=== PATIENT | female | born 1945 ===

== ENCOUNTER 2016-08-21 20:29 | Inpatient (IN) | payer MEDICARE ==
[2016-08-21 20:54] VITALS: BMI 23.8
--- NOTE | 2016-08-21 20:58 | ED PDOC ---
Arrival/HPI - General Time Seen by Provider: 08/21/16 20:55 Historian: Patient EM Caveat: Acuity of Condition, Respiratory Distress - History of Present Illness Narrative History of Present Illness (Text): 08/21/16 20:55 70 year old female whose past medical history includes leukemia, HIV, brought in by ambulance with shortness of breath, respiratory distress. Daughter states she left her mom in the morning in her normal state and found her to be tachypneic, so called EMS. Pt unable to provide hx due to resp. status. Past Medical History - Provider Review Nursing Documentation Reviewed: Yes - Infectious Disease Hx of Infectious Diseases: None - Tetanus Immunization Tetanus Immunization: Unknown - Past Medical History Past Medical History: No Previous - Cardiac Hx Cardiac Disorders: No - Pulmonary Hx Respiratory Disorders: No - Neurological Hx Neurological Disorder: No - HEENT Hx HEENT Disorder: Yes ([place] ear, sinus problems) - Renal Hx Renal Disorder: No - Endocrine/Metabolic Hx Endocrine Disorders: No - Hematological/Oncological Hx Blood Disorders: Yes Hx Leukemia: Yes - Integumentary Hx Dermatological Disorder: No - Musculoskeletal/Rheumatological Hx Falls: No - Gastrointestinal Hx Gastrointestinal Disorders: No - Genitourinary/Gynecological Hx Genitourinary Disorders: No - Psychiatric Hx Psychophysiologic Disorder: No Hx Depression: No Hx Emotional Abuse: No Hx Physical Abuse: No Hx Substance Use: No - Past Surgical History Past Surgical History: No Previous - Suicidal Assessment Feels Threatened In Home Enviroment: No Family/Social History - Physician Review Nursing Documentation Reviewed: Yes Family/Social History: Unknown Family HX Smoking Status: Never Smoked Hx Alcohol Use: No Hx Substance Use: No Hx Substance Use Treatment: No Allergies/Home Meds Allergies/Adverse Reactions: Allergies No Known Allergies Allergy (Verified 12/02/15 17:53) Review of Systems - Review of Systems Systems not reviewed;Unavailable: Respiratory Distress Physical Exam - Physical Exam Narrative Physical Exam (Text): - Physical exam Patient appears age appropriate - Systems Exam Head: Present: Atraumatic, Normocephalic Pupils: Present: PERRL Extraocular Muscles: Present: EOMI Conjunctiva: Present: Normal Mouth: Present: Moist Mucous Membranes Neck: Present: Normal Range of Motion. No: MIDLINE TENDERNESS, Paraspinal Tenderness Respiratory/Chest: Present: Clear to Auscultation, Tachypnic, Hypoxic. Cardiovascular: Present: Tachycardic, Normal S1, S2, Peripheral Pulses Present. No: Murmurs Abdomen: Present: Normal Bowel Sounds, No: Tenderness, Peritoneal Signs, Rebound, Guarding, Distention Back: Present: Normal Inspection. No: Midline Tenderness, Paraspinal Tenderness Upper Extremity: Present: Normal Inspection. No: Cyanosis, Edema Lower Extremity: Present: Normal Inspection. No: Edema Neurological: Present: GCS=15. No focal neurological deficits Skin: Present: Warm, Dry, Normal Color. No: Rashes Lymphatic: Present: OX3, NI, NC Physical Exam Limitations: Clinical Condition Vital Signs Reviewed: Yes Vital Signs Pulse Resp BP Pulse Ox 08/21/16 21:03 128 H 27 H 57/35 L 08/21/16 20:53 154 H 17 100/68 08/21/16 20:40 26 H 08/21/16 20:30 104 H 46 H 74/41 L 100 Blood Pressure: Hypotensive Respiratory Rate: Mechanically Ventilated Appearance: Positive for: Ill-Appearing Pain Distress: None Mental Status: Positive for: Lethargic Medical Decision Making ED Course and Treatment: Impression: 70 year old female presents with respiratory distress. Presented tachypneic, hypoxic, tachycardic. Lungs clear to ausc. b/l. Bedside US performed , no pericardial effusion. Differential Diagnosis included but are not limited to: Pulmonary embolism, sepsis, anemia Plan: -- CT Angio, EKG, Chest X-ray -- Labs -- Reassess and disposition Prior Visits: Notes and results from previous visits were reviewed. Patient last seen in the ED on 12/02/15 for decreased mental status and admitted for SIRS (systemic inflammatory response syndrome). Progress Notes: pt seen immediately on arrival attempted bipap Spoke with daughter in detail about pt's condition, states full code. pt lost pulses, and CPR started intubated pt's BP low. gave verbal order for levophed. Also started epi drip via NS and crash cart epi while waiting for pressor seen by Dr. Bey and accepted to MICU. pharmacy called and asked to send tpa for possible suspicion for PE dw daughter and she has been updated on pt status pt to CT and then MICU PROCEDURE: CENTRAL LINE PLACEMENT Performed by the emergency provider, Time: 20:45 Consent: Discussion of the risks, benefits, and alternatives to the procedure, along with informed consent was precluded by the urgency of the procedure and the patient condition. Verbal consent obtained from daughter. Timeout: A timeout to verify the correct patient, procedure, and site was performed. Indication: pressors, need access for CTA Skin Preparation: Hand hygiene performed prior to central venous catheter insertion. Sterile field, sterile drape, sterile technique, and cap and gown were used. The area was cleansed with 2% Chlorhexidine. Patient position: Supine Location: R. femoral. L. femoral attempted, unable to feed guide wire. pressure held. Technique: The landmarks for the line placement were identified. The vessel was cannulated and a triple lumen catheter was placed using the Seldinger technique. Successful placement: Yes. Line sutured with silk and appropriate dressing applied Assessment: Good patency and blood return through all three lumens. The ports were appropriately flushed. See post procedure X-Ray interpretation. Post-procedure: Patient tolerated the procedure well with no immediate complications. PROCEDURE: INTUBATION Performed by the emergency provider Time: 20:50 Consent: emergent consent Timeout: A timeout to verify the correct patient, procedure, and site was performed. Indication: Respiratory distress Pre-oxygenation: [id number] Medications: None. See MAR for details. ETT Size: 7.0 Confirmation: Cords directly visualized as tube passed, good bilateral breath sounds, positive CO2 detector color change, tube fogging, adequate chest rise, improving pulse oximetry reading, improved skin color, and absence of gastric sounds,. ETT Secured: The cuff was inflated and the tube was secured appropriately at a distance of 22 cm at the lip. Post-Procedure: There were no immediate complications. CXR Confirmation: Yes 08/21/16 21:[address] Romero covering for Dr. Henriquez, states he will speak with Dr. Henriquez dw Dr. Henriquez, states to be cautious with tpa due to thrombocytopenia but to administer it if pt has a PE, after dw family 08/21/16 22:22 CTA [facility] IMPRESSION: 1. Minimal right pleural effusion which is similar to 12/03/2015 and trace left pleural effusion which is decreased. There is also decreased bilateral lower lobe atelectasis or consolidation. 2. Multiple new anterior rib fractures bilaterally since the prior study and suggests recent CPR. There is a question of a sternal fracture as well. 3. ET tube extending to the cephalad aspect of the aortic arch, above the norah. 4. Enlarged right atrium with reflux into the IVC and hepatic veins and abnormal RV/LV ratio suggesting right heart failure. 5. Mild patchy infiltrates in the right upper lobe and to a lesser degree right lower lobe and question of minimal patchy left perihilar infiltrates which may reflect pneumonia or possibly pulmonary edema. 6. Nodular induration throughout the mediastinum borderline hilar nodes which was present on the prior study and of uncertain etiology. 7. No pulmonary embolism is identified. 8. Mild splenomegaly. Patient's chest x-ray shows no pneumothorax, no effusions, endotracheal tube above the norha. Interpreted by me EKG shows sinus tach, 100bpm, no st-segment elevations. interpreted by me. - Critical Care Critical Care Minutes: 60 minutes - Lab Interpretations Lab Results: 08/21/16 20:35 08/21/16 20:35 Lab Results 08/21/16 20:35: Sodium 137, Chloride 106, Potassium 4.3, Carbon Dioxide 10 L D, Anion Gap 25 H, BUN 27 H, Creatinine 1.9 H, Est GFR ( Amer) 31, Est GFR ( Non-Af Amer) 26, Random Glucose 62 L, Calcium 8.0 L, Phosphorus 6.3 H, Magnesium 1.8, Total Bilirubin 4.3 H, AST 115 H, ALT 32, Alkaline Phosphatase 289 H, Troponin I 0.04 D, Total Protein 9.6 H, Albumin 3.4, Globulin 6.2, Albumin/Globulin Ratio 0.5 L 08/21/16 20:35: pO2 65 H, VBG pH 7.05 L*, VBG pCO2 32.0 L, VBG HCO3 8.9 L, VBG Total CO2 9.9 L, VBG O2 Sat (Calc) 87.8 H, VBG Base Excess -20.6 L, VBG Potassium 7.1 H*, Sodium 135.0, Chloride 107.0, Glucose 51 L, Lactate 11.9 H*, FiO2 21.0, Venous Blood Potassium 7.1 H* 08/21/16 20:35: PT 19.0 H, INR 1.76 H, APTT 57.1 H 08/21/16 20:35: WBC 45.8 H* D, RBC 3.10 L, Hgb 9.8 L, Hct 30.4 L, MCV 98.1, MCH 31.6, MCHC 32.2, RDW 20.6 H, Plt Count 39 L*, Neutrophils % (Manual) 5 L, Lymphocytes % (Manual) 93 H, Monocytes % (Manual) 2, Smudge Cells Present, Platelet Evaluation Low, Anisocytosis (manual) Slight - RAD Interpretation Radiology Orders: 08/21/16 20:39 CHEST PORTABLE [RAD] Stat 08/21/16 21:06 ANGIO CHEST PE PROTOCOL [CT] Stat - Medication Orders Current Medication Orders: Discontinued Medications Home Med (*Refrigerator Open) Confirm Administered Dose 1 unit XX .STK-MED ONE Stop: 08/22/16 06:08 Sodium Chloride (Sodium Chloride 0.9%) 1,000 mls @ 999 mls/hr IV .Q1H1M STA Stop: 08/21/16 23:00 Sodium Chloride (Sodium Chloride 0.9%) 1,000 mls @ 125 mls/hr IV .Q8H MANDA Piperacillin Sod/Tazobactam Sod (Zosyn 2.25 Gm In 0.9% 100 Ml) 2.25 gm in 100 mls @ 100 mls/hr IVPB Q6 MANDA PRN Reason: Protocol Stop: 08/22/16 06:59 Last Admin: 08/22/16 00:00 Dose: 100 mls/hr Vancomycin HCl (Vancomycin 500mg In Ns) 500 mg in 100 mls @ 200 mls/hr IVPB Q12 MANDA PRN Reason: Protocol Last Admin: 08/21/16 22:30 Dose: 200 mls/hr Norepinephrine Bitartrate 4 mg (/ Sodium Chloride) 254 mls @ 15.24 mls/hr IV .[id number] PRN; Protocol; 4 MCG/MIN PRN Reason: TITRATE PER MD ORDER Sodium Bicarbonate 50 meq/ (Sodium Chloride) 1,050 mls @ 125 mls/hr IV .Q8H24M MANDA Iodixanol (Visipaque 320 Mg/Ml 100 Ml) Confirm Administered Dose 100 ml IV .STK- MED ONE Stop: 08/21/16 21:11 Lorazepam (Ativan) Confirm Administered Dose 2 mg .ROUTE .STK-MED ONE Stop: 08/21/16 20:45 Last Admin: 08/21/16 20:44 Dose: 2 mg Comments: Administered IVP as per verbal order from Dr. Jon for seizure Sodium Bicarbonate (Sodium Bicarbonate (8.4%) 50 Meq Syringe) Confirm Administered Dose 50 meq .ROUTE .STK-MED ONE Stop: 08/21/16 22:28 Sodium Bicarbonate (Sodium Bicarbonate (8.4%) 50 Meq Syringe) Confirm Administered Dose 50 meq .ROUTE .STK-MED ONE Stop: 08/21/16 23:14 Sodium Bicarbonate (Sodium Bicarbonate (8.4%) 50 Meq Syringe) Confirm Administered Dose 50 meq .ROUTE .STK-MED ONE Stop: 08/22/16 00:03 - Scribe Statement The provider has reviewed the documentation as recorded by the Kelly Evans Provider Scribe Attestation: All medical record entries made by the Kelly were at my direction and personally dictated by me. I have reviewed the chart and agree that the record accurately reflects my personal performance of the history, physical exam, medical decision making, and the department course for this patient. I have also personally directed, reviewed, and agree with the discharge instructions and disposition. Disposition/Present on Arrival - Present on Arrival Any Indicators Present on Arrival: No History of DVT/PE: No History of Uncontrolled Diabetes: No Urinary Catheter: No History Surgical Site Infection Following: None - Disposition Have Diagnosis and Disposition been Completed?: Yes Diagnosis: Respiratory failure Disposition: HOSPITALIZED Disposition Time: 21:36 Patient Plan: ICU Condition: CRITICAL
[2016-08-21 21:07] LABS: VENOUS BLOOD GAS BASE EXCESS -20.6 mmol/L (0.0-2.0)
[2016-08-21] MEDS ORDERED: Iodixanol 320 MG/ML 100 ML BOTTLE IV ONE (21:10)
[2016-08-21 21:11] LABS: VENOUS BLOOD PH 7.05 (7.32-7.43)
[2016-08-21 21:12] LABS: HEMATOCRIT 30.4 % (36.0-48.0); MEAN CELL VOLUME 98.1 fL (80.0-105.0); MEAN CORPUSCULAR HEMOGLOBIN 31.6 pg (25.0-35.0); MEAN CORPUSCULAR HGB CONC 32.2 g/dl (31.0-37.0); PLATELET COUNT 39 10^3/uL (120.0-450.0); RED CELL DISTRIBUTION WIDTH 20.6 % (11.5-14.5)
[2016-08-21 21:21] LABS: ADD MANUAL DIFF? YES
[2016-08-21 21:22] LABS: ALB/GLOB RATIO 0.5 (1.1-1.8); BILIRUBIN,TOTAL 4.3 mg/dL (0.2-1.3); MAGNESIUM 1.8 mg/dL (1.7-2.2); PHOSPHOROUS 6.3 mg/dL (2.5-4.5); POTASSIUM 4.3 mmol/L (3.6-5.0); TOTAL PROTEIN 9.6 g/dL (5.8-8.3); WHITE BLOOD COUNT 45.8 10^3/ul (4.5-11.0)
[2016-08-21 21:32] LABS: TROPONIN I 0.04 ng/mL
[2016-08-21 21:33] LABS: INR 1.76 (0.93-1.08); PARTIAL THROMBOPLASTIN TIME 57.1 Seconds (23.7-30.8)
[2016-08-21 21:36] LABS: NEUTROPHIL 5 % (50.0-70.0)
[2016-08-21 21:37] LABS: ANISOCYTOSIS SLIGHT; PLATELET ESTIMATE LOW (NORMAL); SMUDGE CELLS PRESENT
[2016-08-21] MEDS ORDERED: Sodium Chloride 0.9% 1,000 ML IV STA (22:00)
--- NOTE | 2016-08-21 22:02 | CP.PCM.CON ---
<Mayur Hawkins - Last Filed: 08/21/16 23:47> History of Present Illness - History of Present Illness History of Present Illness: ICU NIGHT RESIDENT CONSULT NOTE HPI: Pt is a 70 year old female with a PMHx of leukemia and HIV who presented to the ED in respiratory distress via EMS. Pt coded in the emergency department , and ICU was consulted. Pt is accompanied by her family, including her daughter and grandson, at bedside. As per daughter, pt was feeling tired all day but was not in distress. When the daughter arrived home from work, the pt started to complain of weakness and trouble breathing. According to the daughter , the pt was struggling for air and EMS was called. History obtained from [facility]. ROS unattainable due to pt being unresponsive. PMD: Dr. Stone Oncologist: Dr. Henriquez PMHx: Leukemia, HIV Home medications: Cozaar, atorvaquone, lopressor Allergies: NKDA Past Surgical Hx: denied Social Hx: no hx of tobacco use, daughter reports pt a few alcoholic drinks daily, denies hx of drug use Family Hx: no significant past medical hx reported Review of Systems - Review of Systems Systems not reviewed;Unavailable: Intubated Past Patient History - Infectious Disease Hx of Infectious Diseases: None - Tetanus Immunizations Tetanus Immunization: Unknown - Past Social History Smoking Status: Never Smoked - CARDIAC Hx Cardiac Disorders: No - PULMONARY Hx Respiratory Disorders: No - NEUROLOGICAL Hx Neurological Disorder: No - HEENT Hx HEENT Problems: Yes ([place] r ear, sinus problems) - RENAL Hx Chronic Kidney Disease: No - ENDOCRINE/METABOLIC Hx Endocrine Disorders: No - HEMATOLOGICAL/ONCOLOGICAL Hx Blood Disorders: Yes Hx Leukemia: Yes - INTEGUMENTARY Hx Dermatological Problems: No - MUSCULOSKELETAL/RHEUMATOLOGICAL Hx Falls: No - GASTROINTESTINAL Hx Gastrointestinal Disorders: No - GENITOURINARY/GYNECOLOGICAL Hx Genitourinary Disorders: No - PSYCHIATRIC Hx Psychophysiologic Disorder: No Hx Depression: No Hx Emotional Abuse: No Hx Physical Abuse: No Hx Substance Use: No - SURGICAL HISTORY Hx Surgeries: No Meds Allergies/Adverse Reactions: Allergies Allergy/AdvReac Type Severity Reaction Status Date / Time No Known Allergies Allergy Verified 12/02/15 17:53 - Medications Medications: Current Medications Sodium Chloride (Sodium Chloride 0.9%) 1,000 mls @ 999 mls/hr IV .Q1H1M STA Stop: 05/04/17 23:00 Physical Exam - Constitutional Appears: Toxic - Head Exam Head Exam: ATRAUMATIC, NORMOCEPHALIC - Eye Exam Eye Exam: absent: PERRL - ENT Exam ENT Exam: Mucous Membranes Moist - Respiratory Exam Respiratory Exam: Clear to Auscultation Bilateral. absent: Rales, Rhonchi, Wheezes - Cardiovascular Exam Cardiovascular Exam: +S1, +S2 - GI/Abdominal Exam GI & Abdominal Exam: Soft - Skin Skin Exam: Pallor Results - Labs Result Diagrams: 08/21/16 20:35 08/21/16 20:35 Labs: Laboratory Results - last 24 hr 08/21/16 08/21/16 08/21/16 20:35 20:35 20:35 WBC 45.8 H* D RBC 3.10 L Hgb 9.8 L Hct 30.4 L MCV 98.1 MCH 31.6 MCHC 32.2 RDW 20.6 H Plt Count 39 L* Neutrophils % (Manual) 5 L Lymphocytes % (Manual) 93 H Monocytes % (Manual) 2 Smudge Cells Present Platelet Evaluation Low Anisocytosis (manual) Slight PT 19.0 H INR 1.76 H APTT 57.1 H pO2 65 H VBG pH 7.05 L* VBG pCO2 32.0 L VBG HCO3 8.9 L VBG Total CO2 9.9 L VBG O2 Sat (Calc) 87.8 H VBG Base Excess -20.6 L VBG Potassium 7.1 H* Sodium 135.0 Chloride 107.0 Glucose 51 L Lactate 11.9 H* FiO2 21.0 Potassium Carbon Dioxide Anion Gap BUN Creatinine Est GFR ( Amer) Est GFR (Non-Af Amer) Random Glucose Calcium Phosphorus Magnesium Total Bilirubin AST ALT Alkaline Phosphatase Troponin I Total Protein Albumin Globulin Albumin/Globulin Ratio Venous Blood Potassium 7.1 H* 08/21/16 20:35 WBC RBC Hgb Hct MCV MCH MCHC RDW Plt Count Neutrophils % (Manual) Lymphocytes % (Manual) Monocytes % (Manual) Smudge Cells Platelet Evaluation Anisocytosis (manual) PT INR APTT pO2 VBG pH VBG pCO2 VBG HCO3 VBG Total CO2 VBG O2 Sat (Calc) VBG Base Excess VBG Potassium Sodium 137 Chloride 106 Glucose Lactate FiO2 Potassium 4.3 Carbon Dioxide 10 L D Anion Gap 25 H BUN 27 H Creatinine 1.9 H Est GFR ( Amer) 31 Est GFR (Non-Af Amer) 26 Random Glucose 62 L Calcium 8.0 L Phosphorus 6.3 H Magnesium 1.8 Total Bilirubin 4.3 H AST 115 H ALT 32 Alkaline Phosphatase 289 H Troponin I 0.04 D Total Protein 9.6 H Albumin 3.4 Globulin 6.2 Albumin/Globulin Ratio 0.5 L Venous Blood Potassium Assessment & Plan - Assessment and Plan (Free Text) Assessment: Hypoxemic Respiratory Failure/Cardiac Arrest: Lactate - 11.9 WBC - 45.8 Zosyn 2.25 IV q6h Vancomycin 500 mg Q12h EKG -1st degree block, [id number] CXR pending Chest CT - no pulmonary embolism (please see full report) Echocardiogram pending Lower extremity dopplers pending SIRS: WBC - 45.8 Zosyn 2.25 IV q6h Vancomycin 500 mg Q12h Procalcitonin pending Thrombycytopenia: Platelet count - 39 Anticoagulation held Prophylactic Measures: Anticoagulation held Protonix 40 mg po IV <Maida LING,Mario - Last Filed: 10/14/16 08:56> Results - Vital Signs Recent Vital Signs: Last Vital Signs Temp 97 F L 08/21/16 22:07 Pulse 97 H 08/22/16 00:01 Resp 81 H 08/22/16 00:01 BP 130/63 08/22/16 00:01 Pulse Ox 100 08/21/16 20:30 - Labs Result Diagrams: 08/21/16 20:35 08/21/16 20:35 Attending/Attestation - Attestation I have personally seen and examined this patient.: Yes I have fully participated in the care of the patient.: Yes I have reviewed all pertinent clinical information: Yes Notes (Text): 10/14/16 08:56 -I agree with the above consult H&P completed by the resident physician.
[2016-08-21 22:03] VITALS: O2SAT 100
[2016-08-21] MEDS ORDERED: Sodium Chloride 0.9% 1,000 ML IV SCH (22:15)
[2016-08-21] MEDS ORDERED: Vancomycin 500mg in NS 500 MG/100 ML BAG IVPB SCH (22:15)
[2016-08-21] MEDS ORDERED: Sodium Bicarbonate (8.4%) 50 Meq Syringe ONE ×2 (22:27→23:13)
[2016-08-22] MEDS ORDERED: Piperacillin/Tazobact 2.25gm 2.25 GM/100 ML BAG IVPB SCH
[2016-08-22] MEDS ORDERED: Sodium Bicarbonate (8.4%) 50 Meq Syringe ONE (00:02)
--- NOTE | 2016-08-22 00:46 | CP.PCM.PN ---
<Mayur Hawkins - Last Filed: 08/22/16 00:19> Subjective - Date & Time of Evaluation Date of Evaluation: 08/21/16 Time of Evaluation: 22:13 - Subjective Subjective: ICU NIGHT RESIDENT CODE BLUE NOTE PT coded 3 times in the CCU and 2 times in the ED prior to arrival in the ICU. First code in the ICU called at 22:14 due to PEA.. CPR was started. 3 rounds of epinephrine given at 22:13, 22:16, and 22:20. 3 rounds of bicarb given at 22: 22. No shockable rhythm. Return of pulses. Second code in ICU called at 23:05 due to PEA. CPR was started. 1st round of epinephrine given at 23:07, as well as 2 amps of bicarb. Second round of spinephrine given at 23:14. Return of pulses. Third code in ICU called at 23:55 due PEA. CPR was started. Epinephrine and bicarb was given at 23:57. Pt was in fine fib at 00:05 and shocked at 300 joules. Pt was given 2nd epinephrine at 00:08. Pt was asystolic and pronounced by nighttime foreman or supervisor and operator. Pupillary and corneal reflexes were not intact. Pt was unresponsive to sternal rub. Heart and breath sounds were absent. Objective - Vital Signs/Intake and Output Vital Signs (last 24 hours): Temp Pulse Resp BP Pulse Ox 128 H 27 H 57/35 L 100 08/21/16 21:03 08/21/16 21:03 08/21/16 21:03 08/21/16 20:30 - Medications Medications: Current Medications Piperacillin Sod/Tazobactam Sod (Zosyn 2.25 Gm In 0.9% 100 Ml) 2.25 gm in 100 mls @ 100 mls/hr IVPB Q6 MANDA PRN Reason: Protocol Stop: 08/22/16 06:59 Vancomycin HCl (Vancomycin 500mg In Ns) 500 mg in 100 mls @ 200 mls/hr IVPB Q12 MANDA PRN Reason: Protocol Norepinephrine Bitartrate 4 mg (/ Sodium Chloride) 254 mls @ 15.24 mls/hr IV .[id number] PRN; Protocol; 4 MCG/MIN PRN Reason: TITRATE PER MD ORDER Sodium Bicarbonate 50 meq/ (Sodium Chloride) 1,050 mls @ 125 mls/hr IV .Q8H24M MANDA - Labs Labs: PT 19.0 Seconds (9.9-11.8) H 08/21/16 20:35 INR 1.76 (0.93-1.08) H 08/21/16 20:35 APTT 57.1 Seconds (23.7-30.8) H 08/21/16 20:35 <Mario Bey MD - Last Filed: 10/14/16 08:59> Objective - Vital Signs/Intake and Output Vital Signs (last 24 hours): Temp Pulse Resp BP Pulse Ox 97 F L 97 H 81 H 130/63 100 08/21/16 22:07 08/22/16 00:01 08/22/16 00:01 08/22/16 00:01 08/21/16 20:30 - Labs Labs: PT 19.0 Seconds (9.9-11.8) H 08/21/16 20:35 INR 1.76 (0.93-1.08) H 08/21/16 20:35 APTT 57.1 Seconds (23.7-30.8) H 08/21/16 20:35 Attending/Attestation - Attestation I have personally seen and examined this patient.: Yes I have fully participated in the care of the patient.: Yes I have reviewed all pertinent clinical information, including history, physical exam and plan: Yes Notes (Text): 10/14/16 08:57 -I agree with the Code Blue events (and ultimate proclamation of ) as described above by the resident physician.
[2016-08-22 02:56] VITALS: BP 130/63; PULSE 97; RESP 81
[2016-08-22 03:11] VITALS: TEMP 97
--- NOTE | 2016-08-22 08:22 | CT ---
PROCEDURE: CT Chest with contrast (Pulmonary Angiogram) HISTORY: SOB COMPARISON: None available. TECHNIQUE: Axial computed tomography images were obtained of the chest in the pulmonary arterial phase of enhancement. Coronal and sagittal reformatted images were created and reviewed. Intravenous contrast dose: 100 mL Visipaque Radiation dose: Total exam DLP = 309.32 mGy-cm. This CT exam was performed using one or more of the following dose reduction techniques: Automated exposure control, adjustment of the mA and/or kV according to patient size, and/or use of iterative reconstruction technique. FINDINGS: Endotracheal tube terminates in distal trachea. There is a small right thyroid lobe and nodular enlarged left thyroid lobe. PULMONARY ARTERIES: There are no filling defects in the pulmonary arteries. No pulmonary embolism. AORTA: No acute findings. No thoracic aortic aneurysm. LUNGS: There is patchy ground-glass attenuation in the right upper lobe and to a lesser extent the right lower lobe. There is biapical pleural parenchymal scarring. The right middle lobe and left lung are clear. There is bibasilar atelectasis. PLEURAL SPACES: There are small bilateral pleural effusions, right larger than left. No pneumothorax. HEART: There is mild cardiomegaly with dilatation of the right atrium. There is reflux of contrast into the IVC. LYMPH NODES: No lymphadenopathy. BONES, CHEST WALL: There is a displaced fracture of the left 2nd rib with adjacent hematoma. There is also a subpleural hematoma. There also fractures of the left 326 anterior ribs. There are nondisplaced fractures of the right 2nd 7th ribs. OTHER FINDINGS: There is mild splenomegaly. IMPRESSION: No CT evidence for acute pulmonary embolism. Bilateral anterior rib no acute fractures with subpleural hematoma along the left 2nd rib fracture. Ground-glass attenuation in the right upper lobe could represent mild alveolar pulmonary edema or aspiration pneumonitis. Cardiomegaly and small pleural effusions, larger on the right. Mild splenomegaly. A preliminary report was provided by [facility].
--- NOTE | 2016-08-22 08:50 | RAD ---
HISTORY: Sepsis Patient COMPARISON: 12/07/2015 FINDINGS: Endotracheal tube terminates 4 cm proximal to the norah. LUNGS: The lungs are well inflated and clear. PLEURA: No significant pleural effusion identified, no pneumothorax apparent. CARDIOVASCULAR: There is persistent mild cardiomegaly. Atherosclerotic aortic arch calcifications are present. . OSSEOUS STRUCTURES: No significant abnormalities. VISUALIZED UPPER ABDOMEN: Normal. OTHER FINDINGS: None. IMPRESSION: No acute findings.
--- NOTE | 2016-08-22 14:31 | CP.PCM.PRO ---
Pronouncement of Note - Clinical Findings Physical Exam: No Response Verbal/Painful Stimuli, Absent Peripheral Pulses{ Carotid & Femoral}, Absent Heart & Breath Sounds, No Pupillary Light Reflex, No Corneal Reflex, Pupils Fixed & Dilated, Absence of Vital Signs - Pronouncement Time Time of Pronouncement of : 00:10 - Notifications Pronouncement Notifications: Family Notified, Atending Notified Senior Medical Technologist Notified: Yes - Autopsy Autopsy Requested: No
--- NOTE | 2016-08-22 17:12 | CARD ---
APPROVED REPORT EKG Measurement Heart [id number] <Conclusion> Sinus rhythm with 1st degree AV block with fusion complexes Low voltage QRS Left posterior fascicular block Inferior infarct, age undetermined Cannot rule out Anteroseptal infarct, age undetermined Abnormal ECG
--- NOTE | 2016-10-01 00:24 | HP ---
CHIEF COMPLAINT: Respiratory distress. HISTORY OF PRESENT ILLNESS: This patient is a 71-year-old female with past medical history significa nt for symptomatic anemia requiring transfusions periodically along with human immunodeficiency virus positivity, brought in by her daughter for severe shortness of breath and tachypnea. The patient wa s evaluated in the Emergency Room with considerations for possible pulmonary embolism with the patien t noted to have hypotensive episode, eventually transferred to the intensive care unit. The assessme nt at that time was that of respiratory failure with hypovolemic sepsis and severe thrombocytopenia. ALLERGIES: No known allergies. PAST MEDICAL HISTORY: As above with human immunodeficiency virus positivity, severe anemia, with lar ge granular cell lymphocytic leukemia, recent pneumonia. MEDICATIONS: On admission included Cozaar, atovaquone, Lopressor. FAMILY HISTORY AND SOCIAL HISTORY: Noncontributory. 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 OBJECTIVE: VITAL SIGNS: On admission included a temperature 97, pulse 104, respirations 26, blood pressure 74/4 1 with a pulse ox of 100% on nonrebreather. GENERAL: According to physicians attending her, showed that she was tachypneic with clear auscultati on of her lungs with the heart tachycardic. Other physical exam findings are as per Dr. Jon, [facility] Room doctor. LABORATORY DATA: White blood cell count of 45,800, hemoglobin 9.8, hematocrit 30.4, platelet count 3 9,000 with a chem panel showing a BUN of 27, creatinine 1.9. The patient's testing included an EKG, which was read as sinus rhythm, first degree AV block, left po sterior fascicular block, low voltage QRS, inferior infarct, age indeterminate, cannot rule out anter oseptal infarct, age indeterminate, abnormal EKG. Her chest x-ray was read as no acute findings. A CT scan of her chest was done. It was read as no CT evidence of acute pulmonary embolism, bilatera l anterior rib. No acute fractures with subpleural hematoma along the left 2nd rib fracture, ground glass attenuation to the right upper lobe, could represent mild alveolar pulmonary edema or aspiratio n pneumonitis, cardiomegaly, small pleural effusions, large on the right, mild splenomegaly, with an ET tube terminating in the distal trachea with a displaced fracture of the left 2nd rib with adjacen t hematoma, subsequent subpleural hematoma, fracture of the left anterior ribs, nondisplaced fracture of the right 2nd and 3rd is possibly secondary to CPR with compressions. Also, no CT evidence for a cute pulmonary embolism. ASSESSMENT: Respiratory failure, sepsis, anemia, thrombocytopenia, HIV positivity, and hypovolemia, rule out pulmonary embolism, which was ruled out. PLAN: Plan for this patient was intubation, which was done with TPA held due to severe thrombocytope jazmín with the PE ruled out. Infiltrates, right upper lobe, fractures of the ribs secondary to chest c ompressions, leukocytosis. Plan is as above with the patient a full code as per Dr. Jon. We will monitor clinically and wi labs. Toby Duval MD cc: [id number] TT: 10/01/2016 00:23:17 pr
--- NOTE | 2016-10-01 00:41 | DS ---
The patient was a 70-year-old female admitted via the Emergency Room for respiratory failure, acute s epsis, known to suffer from HIV positivity. She was admitted today by the Emergency Room to the inte nsive care unit with the patient was coded 3 times in the CCU and 2 times in the Emergency Room prior to the admission to the ICU with the patient eventually noted to be unresponsive. Pupils fixed and dilated and was pronounced at 0010, so at 10 seconds past midnight on 08/22/16 by the tile presser, with the family notified medical exam was notified. Again, the patient's past medical history signi ficant for severe anemia secondary to HIV positivity, large granular lymphocytic leukemia with severe thrombocytopenia and eventual overwhelming sepsis with hypovolemia and respiratory failure. Toby Duval MD cc: [phone] TT: 10/01/2016 00:40:51 an
== END 2016-08-22 00:10 | DRG 208 ==
LOC: ED 20:29 → CCU 21:37
PROVIDERS: ADMIT Family Medicine; ATTEND Family Medicine
PROC: 5A1935Z Respiratory Ventilation, Less than 24 Consecutive Hours (ICD-10-PCS; principal; 2016-08-21)
PROC: 0BH17EZ Insertion of Endotracheal Airway into Trachea, Via Natural or Artificial Opening (ICD-10-PCS; 2016-08-21)
PROC: 5A12012 Performance of Cardiac Output, Single, Manual (ICD-10-PCS; 2016-08-21)
DX: J96.91 Respiratory failure, unspecified with hypoxia (principal); B20 Human immunodeficiency virus [HIV] disease; R65.10 Systemic inflammatory response syndrome (SIRS) of non-infectious origin without acute organ dysfunction; D69.6 Thrombocytopenia, unspecified; Z85.6 Personal history of leukemia